=== PATIENT | female | born 1950 | race Caucasian/White ===

== ENCOUNTER 2024-04-09 17:02 | Emergency (ER) | payer OTHER, SELFPAY ==
[2024-04-09 17:52] VITALS: BP 131/81; PULSE 70; RESP 20; TEMP 36.4; O2SAT 94
--- NOTE | 2024-04-09 18:17 | EDNOTE_ITS ---
ED Fall Injury RME/HPI General Chief Complaint: Fall Stated Complaint: Fall 10 days ago, rib pain Time Seen by Provider: 04/09/24 18:03 Source: patient Arrival date/time: 04/09/24 17:02 73-year-old female presents emergency department complaining of bilateral rib pain after suffering ground-level fall 10 days ago. Patient denies any LOC or injury to head or neck area during fall patient reports accidentally tripped and hurt left side of rib against door. Patient Nuys any fever, chills, cough, shortness of breath, chest pain, or any other associated symptom. Mode of arrival: ambulatory Limitations: no limitations Related Data Home Medications ?Medication ?Instructions ?Recorded ?Confirmed amlodipine 10 mg tablet (Norvasc) 2.5 mg PO QDAY #0 tabs 01/04/16 06/30/21 lisinopril 40 mg tablet 40 ml PO QDAY #0 tabs 01/04/16 06/30/21 amiodarone 200 mg tablet 200 mg PO QDAY 06/27/21 06/30/21 aspirin 81 mg tablet,delayed 81 mg PO QDAY 06/27/21 06/30/21 release atorvastatin 20 mg tablet 20 mg PO QDAY 06/27/21 06/30/21 diltiazem HCl 240 mg 240 mg PO QAM 06/27/21 06/30/21 capsule,extended release 24 hr Previous Rx's ?Medication ?Instructions ?Recorded albuterol sulfate 90 mcg/actuation 2 puff inhalation Q6H PRN 04/09/24 aerosol inhaler (Ventolin HFA) shortness of breath or wheezing #6.7 grams Allergies Allergy/AdvReac Type Severity Reaction Status Date / Time cortisone Allergy Mild Swelling Verified 06/30/21 11:32 acetaminophen Allergy Unknown Verified 06/30/21 11:32 hydrocodone Allergy Unknown Verified 06/30/21 11:32 Review of Systems Review of Systems Systems Reviewed: All systems reviewed, normal except as documented Constitutional Constitutional: Reports system reviewed and no additional complaints, except as documented, Denies body ache(s), Denies chills and Denies fever(s) Eyes Eyes: Reports system reviewed and no additional complaints, except as documented and Denies change in vision ENT Ears, Nose, Mouth, and Throat: Reports system reviewed and no additional complaints, except as documented, Denies disequilibrium, Denies dizziness, Denies sore throat and Denies vertigo Cardiovascular Cardiovascular: Reports system reviewed and no additional complaints, except as documented, Denies chest pain and Denies dyspnea Respiratory Respiratory: Reports system reviewed and no additional complaints, except as documented, Denies chest congestion, Denies cough and Denies dyspnea Gastrointestinal Gastrointestinal: Reports system reviewed and no additional complaints, except as documented, Denies abdominal pain, Denies nausea and Denies vomiting Musculoskeletal Musculoskeletal: Reports system reviewed and no additional complaints, except as documented, Denies abnormal gait, Denies arthralgias and Reports other (Rib pain) Integumentary/Breasts Skin/Breast: Reports system reviewed and no additional complaints, except as documented, Denies erythema, Denies rash and Denies wounds Neurologic Neurologic: Reports system reviewed and no additional complaints, except as documented, Denies abnormal gait, Denies disequilibrium, Denies dizziness and Denies vertigo Past Medical History Past Medical History NEUROLOGIC: Negative Neurological Disorders CARDIAC: Positive Cardiac Disorders, Atrial Fibrillation, Heart Murmur, Hypercholesterolemia, Rheumatic Fever (as a child) and Hypertension; Negative Congestive Heart Failure RESPIRATORY: Negative Chronic Obstructive Pulmonary Disease (COPD) GASTROINTESTINAL: Positive Hiatal Hernia (had surgery 3 years ago) and Obesity; Negative Gastrointestinal Disorders GENITOURINARY: Negative Genitourinary Disorders or Renal Disease REPRODUCTIVE: Positive Previous Pregnancies MUSCULOSKELETAL: Positive Arthritis; Negative Musculoskeletal Disorders ENT: Positive Cataracts ENDOCRINE: Negative Endocrine Disorders, Diabetes Mellitus Type 1 or Diabetes Mellitus Type 2 HEMATOLOGIC: Negative Blood Disorders OTHER HISTORY: Positive Radiation Therapy (to lip), Measles and Mumps; Negative Autoimmune Disease Family History FAMILY HISTORY: Positive Family Cardiac Disorders (father), Family Cancer (mom, grandmother) and Family Surgery; Negative Family Anesthesia Reaction Surgical History SURGICAL: Positive Tubal Ligation; Negative Cardiac Surgery, Endocrine Surgery, Ear Surgery or Abdominal Surgery Social History SMOKING STATUS: Current every day smoker ED Exam General Limitations: Present no limitations General appearance: Present alert and in no apparent distress Head Head exam: Present atraumatic Eye Eye exam: Present normal appearance, PERRL and EOMI ENT ENT exam: Present normal exam, normal oropharynx and mucous membranes moist Neck Neck exam: Present normal inspection, full ROM and trachea midline Chest Chest inspection: Present normal inspection and symmetric chest wall rise Respiratory Respiratory exam: Present normal lung sounds bilaterally Cardiovascular Cardiovascular exam: Present regular rate, normal rhythm and normal heart sounds Abdominal Exam Abdominal exam: Present soft and normal bowel sounds Extremities Exam Extremities exam: Present normal inspection and full ROM Back Exam Back exam: Present normal inspection and full ROM Neurological Exam Neurological exam: Present alert, oriented X3 and CN II-XII intact Psychiatric Psychiatric exam: Present normal affect and normal mood Skin Skin exam: Present warm, dry, intact and normal color Course Quality Measures none Orders Category Date Time Status XR ribs BI min 4V w CXR1V Stat Exams 04/09/24 18:17 Completed Ketorolac Inj [Toradol Inj] Med 04/09/24 18:17 Discontinued 30 mg IM X1 ONE Vital Signs Vital signs: Vital Signs Temperature 97.5 F 04/09/24 17:52 Pulse Rate 70 04/09/24 17:52 Respiratory Rate 20 04/09/24 17:52 Blood Pressure 131/81 H 04/09/24 17:52 Pulse Oximetry (%) 94 L 04/09/24 17:52 Oxygen Delivery Method Room Air 04/09/24 17:52 94% room air within normal limits Fall MDM Narrative MDM Narrative:: 73-year-old female presents emergency department complaining of bilateral rib pain after suffering ground-level fall 10 days ago. Patient denies any LOC or injury to head or neck area during fall patient reports accidentally tripped and hurt left side of rib against door. Patient Nuys any fever, chills, cough, shortness of breath, chest pain, or any other associated symptom. Patient reports his everyday smoker. Chest x-ray and rib x-rays were negative for any pneumonia or acute rib fractures. Patient appears nontoxic and hemodynamically stable. Patient not appear to be in any respiratory distress, pursed lip breathing, or tripoding. Patient speaking in full sentences. Patient discharged and instructed to have close follow-up with primary care provider and return to emergency department for any worsening symptoms or as needed. Patient data [place] [facility] [place] Clinical information provided by:: patient Social determinants that could affect healthcare access:: none Patient has the following chronic illnesses:: See chart How is presenting disease/condition affected by chronic disease/condition?: uneffected by Evaluation data The following diagnostics were reviewed and interpreted by me:: radiology exam(s) Lab and/or radiology exams considered but not ordered:: Ordered Interpretation Summary: Interpreted by me Medications / Prescriptions Medications or Prescriptions considered but not ordered:: Ordered Medication administrations:: Medication Administration History Discontinued Medications Ketorolac Tromethamine (Ketorolac Inj 60 Mg/2 Ml Vial) 30 mg IM X1 ONE Stop: 04/09/24 18:18 Last Admin: 04/09/24 18:36 Dose: 30 mg Documented By: FC Given Consultations Consultation(s) initiated? (list below): No Diagnosis Fall Differential Diagnosis: other (Rib fracture, pneumonia) Most likely diagnosis given after review of the tests above:: Fall Admission Indicated Admission indicated?: not indicated Admission Request Was there a request for admission?: No Disposition Plan Disposition Plan: Discharge Discharge Attestation Discharge Attestation: The patient and all family members were given an opportunity to ask questions and understood the discharge instructions. Discharge instructions specifically effects, indications for sooner follow up or return to the emergency department, and the expected course of current diagnosis. Patient condition: Stable Discharge Plan Plan Patient Disposition: HOME (Self Care) Disposition Comment: Stable Prescriptions/Referrals Prescriptions/Med Rec: New albuterol sulfate [Ventolin HFA] 90 mcg/actuation HFA aerosol inhaler 2 puff inhalation Q6H PRN (Reason: shortness of breath or wheezing) Qty: 6.7 0RF No Action amlodipine [Norvasc] 10 MG tablet 2.5 mg PO QDAY Qty: 0 lisinopril 40 MG tablet 40 ml PO QDAY Qty: 0 atorvastatin 20 mg Tablet 20 mg PO QDAY amiodarone 200 mg Tablet 200 mg PO QDAY diltiazem HCl 240 mg Capsule,Extended Release 24hr 240 mg PO QAM aspirin 81 mg Tablet,Delayed Release (Dr/Ec) 81 mg PO QDAY Referrals: Freddie Zambrano MD [Primary Care Provider] - In 1 week Problem List Clinical Impression: Fall Patient/Caregiver Discharge Instructions Discharge Activity: activity as tolerated Education Materials: Preventing Falls Moving Safely ..., Exercises to Prevent Falls, ED Fall Dizziness Weakn Balance Additional Instructions: Use inhaler as needed. No rib fractures on x-ray. Follow-up with primary care provider in 24 to 48 hours. Return to emergency department for any worsening symptoms or as needed. Print Language: Divehi Stand Alone Forms: Marce Award Info., Patient Portal Info Letter PA/ARUN Supervising Physician PA/ARUN Supervising Physician: Dr. Trujillo
--- NOTE | 2024-04-09 18:17 | XR_ITS ---
Examination: Ribs, bilateral, with PA chest, 5 views Technique: Chest PA, RIBS AP, RPO, LPO, AP coned lower ribs 5 views Exam date and time: April 09, 2024 1822 hrs. Indications: Patient fell 3 days ago with injury to the bilateral chest, bilateral rib pain Findings: Mild prominence left ventricle No pneumothorax Significant osteopenia No acute rib fractures Impression: No pneumothorax pulmonary contusion or hemothorax No acute rib fractures
[2024-04-09] MEDS: KETOROLAC INJ 60 MG/2 ML VIAL 30 MG IM (18:36)
== END 2024-04-09 19:42 | disposition home or self-care (01) ==
PROVIDERS: Emergency Provider Emergency Medicine; PCP Internal Medicine
DX: S29.9XXA Unspecified injury of thorax, initial encounter (principal); W01.0XXA Fall on same level from slipping, tripping and stumbling without subsequent striking against object, initial encounter
CPT/HCPCS: 71111; 96372; 99283; J1885